=== PATIENT | female | born 1960 | race Caucasian/White ===

== ENCOUNTER 2022-12-30 08:12 | Day surgery (SDC) | payer OTHER ==
[2022-12-29 11:09] LABS: BASOPHILS % (AUTO) 0.6 % (0.0-2.0); EOSINOPHILS # (AUTO) 0.1 K/uL (0-0.4); EOSINOPHILS % (AUTO) 1.4 % (0.0-4.0); HEMATOCRIT 37.2 % (36-48); HEMOGLOBIN 12.1 g/dL (12.0-16.0); LYMPHOCYTES # (AUTO) 1.4 K/uL (2.5-16.5); LYMPHOCYTES % (AUTO) 20.6 % (20.5-51.1); MEAN CORPUSCULAR HEMOGLOBIN 27 pg (27-31); MEAN CORPUSCULAR HGB CONC 33 g/dL (33-37); MONOCYTES # (AUTO) 0.4 K/uL (0.8-1.0); MONOCYTES % (AUTO) 5.4 % (1.7-9.3); NEUTROPHILS # (AUTO) 4.9 K/uL (1.8-7.7); PLATELET COUNT (AUTO) 171 K/uL (140-450); RED BLOOD CELL COUNT(AUTO) 4.54 MIL/uL (4.20-5.40); RED CELL DISTRIBUTION WIDTH 14.8 % (11.6-13.7); WHITE BLOOD COUNT (AUTO) 6.8 K/uL (4.8-10.8)
[2022-12-29 11:30] LABS: ALBUMIN 4.1 g/dL (3.4-5.0); ANION GAP 10.2 (8-16); CARBON DIOXIDE 28.2 mmol/L (21-32); CREATININE 0.8 mg/dL (0.6-1.3); POTASSIUM 3.4 mmol/L (3.5-5.1)
[~2022-12-30] VITALS: Ht 154.9 cm; Wt 77.6 kg
[2022-12-30] MEDS ORDERED: BUPIVACAINE-MPF/EPI 0.25% 30 ML VIAL INJ ONE (10:06)
[2022-12-30] MEDS ORDERED: LIDOCAINE/EPI MPF 1%1:200000 30 ML VIAL INJ ONE (10:06)
[2022-12-30] MEDS ORDERED: fentaNYL citrate 0.05 MG/ML VIAL ONE (10:08)
[2022-12-30] MEDS ORDERED: BUPIVACAINE-MPF 0.25% 30 ML VIAL INJ ONE (10:18)
[2022-12-30] MEDS ORDERED: LIDOCAINE 1% 500 MG/50 ML VIAL ONE (10:18)
[2022-12-30] MEDS ORDERED: BUPIVACAINE-MPF 0.5% 30 ML VIAL INJ ONE (10:19)
[2022-12-30] MEDS ORDERED: PROPOFOL 200 MG/20 ML VIAL IV ONE ×2 (10:57)
[2022-12-30] MEDS ORDERED: ONDANSETRON 4 MG/2 ML VIAL ONE (10:57)
[2022-12-30] MEDS ORDERED: KETOROLAC 30 MG/ML VIAL ONE (10:58)
[2022-12-30] MEDS ORDERED: LABETALOL 20 MG/4 ML VIAL IVP PRN (11:22)
[2022-12-30] MEDS ORDERED: METOCLOPRAMIDE 10 MG/2 ML INJ VIAL IVP PRN (11:22)
[2022-12-30] MEDS ORDERED: HYDROmorphone 1 MG/ML AMP IVP PRN ×2 (11:25)
[2022-12-30] MEDS ORDERED: LACTATED RINGERS 1,000 ML IV SCH (11:25)
[2022-12-30] MEDS ORDERED: ONDANSETRON 4 MG/2 ML VIAL IV PRN (11:25)
[2022-12-30] MEDS ORDERED: MORPHINE SULFATE 4 MG/ML SYR IV PRN (11:25)
[2022-12-30] MEDS ORDERED: MORPHINE SULFATE 2 MG/ML SYR IVP PRN (11:25)
[2022-12-30] MEDS: hydrALAZINE 20 MG/ML VIAL IVP PRN ×2 (11:50→12:00)
== END 2022-12-30 13:37 | disposition home or self-care (01) ==
LOC: MOR 08:12 → MMU 08:12 → MOR 13:37
PROVIDERS: ATTEND Surgery
DX: C50.912 Malignant neoplasm of unspecified site of left female breast (principal)
CPT/HCPCS: 36415; 36561; 71045; 76937; 77001; 77003; 80053; 85025; 86886; 86900; 86901; 87426; 93005; J0360; J0690; J1644; J1885; J2001; J2405; J2704; J3010; J3490; J7060; J7120; Q0092

== ENCOUNTER 2023-01-25 19:18 | Emergency (ER) | payer OTHER ==
[~2023-01-25] VITALS: Ht 154.9 cm; Wt 78.0 kg
[2023-01-25 19:43] VITALS: BP 159/92
[2023-01-25] MEDS ORDERED: CEPH-588 PO (19:51)
--- NOTE | 2023-01-25 19:51 | NUR ---
HERBIE Fontenot assessing pt in triage rm.
== END 2023-01-25 20:13 | disposition home or self-care (01) ==
LOC: MED 19:18
DX: Z48.00 Encounter for change or removal of nonsurgical wound dressing (principal); Z85.3 Personal history of malignant neoplasm of breast; Z79.899 Other long term (current) drug therapy
CPT/HCPCS: 99283